=== PATIENT | male | born 1940 | race Caucasian/White ===

== ENCOUNTER 2021-10-19 17:04 | Inpatient (IN) | payer SELFPAY ==
[~2021-10-19] VITALS: Ht 165.1 cm; Wt 44.0 kg
[2021-10-19] VITALS (8 sets, daily range): BP systolic 71–108; BP diastolic 47–68
[2021-10-19 18:44] LABS: HEMATOCRIT 41.2 % (42.0-52.0); MEAN CELL VOLUME 106.5 fl (80.0-94.0); MEAN CORPUSCULAR HGB 34.9 pg (27.0-31.0); MEAN CORPUSCULAR HGB CONC 32.8 g/dl (33.0-37.0); MEAN PLATELET VOLUME 9.6 fl (9.6-12.3); NUCLEATED RED BLOOD CELL 0.1 % (0.0-0.0); PLATELET COUNT AUTOMATED 287 10*3/uL (130-400); RED BLOOD COUNT 3.87 10*6/uL (4.50-5.90); RED CELL DISTRI WIDTH 14.7 % (0-14.5); WHITE BLOOD COUNT 20.3 10*3/uL (4.8-10.8)
[2021-10-19 18:45] LABS: MANUAL DIFF REFLEX YES
[2021-10-19 19:00] LABS: ALKALINE PHOSPHATASE 104 U/L (45-117); BUN 46 mg/dl (7-24); CHLORIDE 105 mmol/L (98-107); CPK 115 U/L (39-308); CREATININE 1.21 mg/dL (0.70-1.30); POTASSIUM 3.6 mmol/L (3.5-5.1); SGOT/AST 50 IU/L (3-35); SGPT/ALT 193 U/L (12-78); SODIUM 145 mmol/L (136-145); TOTAL PROTEIN 6.3 gm/dL (6.4-8.2)
[2021-10-19 19:22] LABS: PLATELET SUFFICIENCY NORMAL (NORMAL); TOTAL CELLS COUNTED 100 #CELLS
[2021-10-19 23:15] LABS: BILIRUBIN 2+ (Negative); BLOOD 2+ (Negative); CLARITY Turbid (Clear); COLOR Dark Yellow (Yellow); GLUCOSE Negative (Negative); KETONE 1+ (Negative); LEUKO ESTERASE Trace (Negative); NITRITE Negative (Negative); PH 5.5 (4.5-8.0); SPECIFIC GRAVITY 1.025 (1.001-1.030)
[2021-10-19 23:31] LABS: HYALINE CAST TNTC
[2021-10-20] VITALS (91 sets, daily range): BP systolic 64–114; BP diastolic 38–860
[2021-10-20 00:57] LABS: ABG BASE EXCESS 0.2 mmol/L (-2.0-2.0); ARTERIAL BLOOD GAS PH 7.451 (7.35-7.45); ARTERIAL BLOOD GAS PO2 102.4 (80-90)
[2021-10-20 05:01] LABS: BUN 42 mg/dl (7-24); CHLORIDE 107 mmol/L (98-107); CHOLESTEROL 115 mg/dL (<200); CREATININE 1.02 mg/dL (0.70-1.30); SGOT/AST 42 IU/L (3-35); SGPT/ALT 134 U/L (12-78); SODIUM 145 mmol/L (136-145); TRIGLYCERIDES 173 mg/dl (<150)
[2021-10-20 05:02] LABS: ALKALINE PHOSPHATASE 75 U/L (45-117); LDL CHOLESTEROL 45 mg/dL (9-159); TOTAL PROTEIN 4.8 gm/dL (6.4-8.2)
[2021-10-20 05:04] LABS: POTASSIUM 2.5 mmol/L (3.5-5.1)
[2021-10-20 05:09] LABS: FREE T4 0.54 ng/dl (0.76-1.46)
[2021-10-20 07:30] LABS: MEAN CELL VOLUME 105.4 fl (80.0-94.0); MEAN CORPUSCULAR HGB 35.1 pg (27.0-31.0); MEAN CORPUSCULAR HGB CONC 33.3 g/dl (33.0-37.0); MEAN PLATELET VOLUME 10.3 fl (9.6-12.3); RED BLOOD COUNT 3.13 10*6/uL (4.50-5.90); RED CELL DISTRI WIDTH 14.4 % (0-14.5); WHITE BLOOD COUNT 15.7 10*3/uL (4.8-10.8)
[2021-10-20 07:32] LABS: PLATELET COUNT AUTOMATED 192 10*3/uL (130-400)
[2021-10-20 07:33] LABS: MANUAL DIFF REFLEX YES
[2021-10-20 07:34] LABS: ACT PARTIAL THROMBO TIME 32.8 SECONDS (20.0-32.1); INTERNATIONAL NORM RATIO 1.1 (2.0-3.5)
[2021-10-20 07:50] LABS: PLATELET SUFFICIENCY NORMAL (NORMAL); TOTAL CELLS COUNTED 100 #CELLS
[2021-10-20 12:24] LABS: VITAMIN D, 25-HYDROXY 79.7 ng/mL (30-100)
[2021-10-20 14:39] LABS: BUN 43 mg/dl (7-24); CHLORIDE 111 mmol/L (98-107); CREATININE 1.07 mg/dL (0.70-1.30); SODIUM 144 mmol/L (136-145)
[2021-10-20 15:01] LABS: POTASSIUM 4.2 mmol/L (3.5-5.1)
[2021-10-21] VITALS (45 sets, daily range): BP systolic 46–109; BP diastolic 13–75
[2021-10-21 05:36] LABS: ALKALINE PHOSPHATASE 82 U/L (45-117); BUN 41 mg/dl (7-24); CHLORIDE 110 mmol/L (98-107); CREATININE 1.02 mg/dL (0.70-1.30); POTASSIUM 4.1 mmol/L (3.5-5.1); SGOT/AST 42 IU/L (3-35); SGPT/ALT 112 U/L (12-78); SODIUM 145 mmol/L (136-145)
[2021-10-21 06:45] LABS: HEMATOCRIT 34.8 % (42.0-52.0); MEAN CELL VOLUME 104.5 fl (80.0-94.0); MEAN CORPUSCULAR HGB 35.1 pg (27.0-31.0); MEAN CORPUSCULAR HGB CONC 33.6 g/dl (33.0-37.0); MEAN PLATELET VOLUME 10.5 fl (9.6-12.3); PLATELET COUNT AUTOMATED 183 10*3/uL (130-400); RED BLOOD COUNT 3.33 10*6/uL (4.50-5.90); RED CELL DISTRI WIDTH 14.4 % (0-14.5); WHITE BLOOD COUNT 14.6 10*3/uL (4.8-10.8)
[2021-10-21 06:46] LABS: MANUAL DIFF REFLEX YES
[2021-10-21 07:53] LABS: PLATELET SUFFICIENCY NORMAL (NORMAL); TOTAL CELLS COUNTED 100 #CELLS
[2021-10-21 09:07] LABS: HEP B CORE AB, IGM Negative (Negative); HEPATITIS B SURFACE AG Negative (Negative); HEPATITIS C VIRUS ANTIBODY <0.1 s/co (0.0-0.9)
== END 2021-10-21 12:41 | disposition hospice, inpatient (51) | DRG 871 ==
LOC: ED 17:04 → EDHOLD 20:39 → ICCU 20:39
PROVIDERS: Emergency Medicine; Internal Medicine; Student in an Organized Health Care Education/Training Program; ADMIT Internal Medicine; ATTEND Internal Medicine
PROC: 5A1945Z Respiratory Ventilation, 24-96 Consecutive Hours (ICD-10-PCS; principal; 2021-10-20)
PROC: 0BH17EZ Insertion of Endotracheal Airway into Trachea, Via Natural or Artificial Opening (ICD-10-PCS; 2021-10-20)
PROC: 02HV33Z Insertion of Infusion Device into Superior Vena Cava, Percutaneous Approach (ICD-10-PCS; 2021-10-20)
PROC: B548ZZA Ultrasonography of Superior Vena Cava, Guidance (ICD-10-PCS; 2021-10-20)
DX: A41.9 Sepsis, unspecified organism (principal); R65.21 Severe sepsis with septic shock; J96.01 Acute respiratory failure with hypoxia; G93.41 Metabolic encephalopathy; E43 Unspecified severe protein-calorie malnutrition; J18.9 Pneumonia, unspecified organism; E87.2 Acidosis; Z68.1 Body mass index [BMI] 19.9 or less, adult; J44.0 Chronic obstructive pulmonary disease with (acute) lower respiratory infection; Z51.5 Encounter for palliative care; E86.0 Dehydration; K80.20 Calculus of gallbladder without cholecystitis without obstruction; B35.1 Tinea unguium; Z66 Do not resuscitate; D53.9 Nutritional anemia, unspecified; R73.9 Hyperglycemia, unspecified; R74.01 Elevation of levels of liver transaminase levels; E83.41 Hypermagnesemia; R31.9 Hematuria, unspecified

== ENCOUNTER 2021-10-21 13:11 | Inpatient (IN) | payer OTHER ==
[~2021-10-21] VITALS: Ht 165.1 cm; Wt 44.0 kg
[2021-10-21 13:29] VITALS: BP 57/26
[2021-10-21 14:49] VITALS: BP 59/29
[2021-10-21 16:00] VITALS: BP 59/29
[2021-10-21 20:00] VITALS: BP 72/40
[2021-10-22] VITALS: BP 75/36
[2021-10-22 08:00] VITALS: BP 81/42
[2021-10-22 12:00] VITALS: BP 82/48
[2021-10-22 16:00] VITALS: BP 94/53
[2021-10-22 20:00] VITALS: BP 107/58
[2021-10-23] VITALS: BP 110/60
[2021-10-23 04:00] VITALS: BP 183/130
[2021-10-23 08:00] VITALS: BP 118/64
[2021-10-23 12:00] VITALS: BP 104/58
[2021-10-23 16:00] VITALS: BP 108/60
[2021-10-23 20:00] VITALS: BP 102/56
[2021-10-24] VITALS: BP 138/95
[2021-10-24 08:15] VITALS: BP 107/54
[2021-10-24 12:18] VITALS: BP 110/78
[2021-10-24 16:00] VITALS: BP 126/57
[2021-10-24 20:00] VITALS: BP 148/52
[2021-10-25] VITALS: BP 106/56
[2021-10-25 08:00] VITALS: BP 108/60
[2021-10-25 12:00] VITALS: BP 134/86
[2021-10-25 15:52] VITALS: BP 104/63
[2021-10-25 20:00] VITALS: BP 91/76
[2021-10-26] VITALS: BP 104/67
[2021-10-26 08:00] VITALS: BP 99/57
[2021-10-26 12:00] VITALS: BP 143/71
[2021-10-26 16:00] VITALS: BP 103/50
[2021-10-26 20:00] VITALS: BP 112/51
== END 2021-10-27 02:01 | DRG 871 ==
LOC: 5E 13:11 → ICCU 13:11 → 5E 16:39
PROVIDERS: ADMIT Internal Medicine; ATTEND Internal Medicine
DX: A41.9 Sepsis, unspecified organism (principal); R65.21 Severe sepsis with septic shock; E43 Unspecified severe protein-calorie malnutrition; J96.00 Acute respiratory failure, unspecified whether with hypoxia or hypercapnia; J18.9 Pneumonia, unspecified organism; G93.41 Metabolic encephalopathy; E87.2 Acidosis; E86.0 Dehydration; Z51.5 Encounter for palliative care; D53.9 Nutritional anemia, unspecified; R73.9 Hyperglycemia, unspecified; R74.01 Elevation of levels of liver transaminase levels; E83.41 Hypermagnesemia; J44.9 Chronic obstructive pulmonary disease, unspecified